=== PATIENT | female | born 1985 ===

== ENCOUNTER 2018-11-27 13:18 | Emergency (ER) | payer MEDICAID ==
[~2018-11-27] VITALS: Ht 152.4 cm; Wt 63.2 kg
[2018-11-27 13:21] VITALS: Ht 152.4 cm; Wt 63.2 kg
[2018-11-27] MEDS ORDERED: PERMETHRIN60 GM TOPICAL (13:36)
[2018-11-27 13:57] VITALS: BP 114/79
== END 2018-11-27 13:57 | disposition home or self-care (01) ==
LOC: D.ER 13:18
DX: T14.8XXA Other injury of unspecified body region, initial encounter (principal); W57.XXXA Bitten or stung by nonvenomous insect and other nonvenomous arthropods, initial encounter; Y93.89 Activity, other specified; Y92.019 Unspecified place in single-family (private) house as the place of occurrence of the external cause